=== PATIENT | female | born 1940 | race Caucasian/White ===

== ENCOUNTER 2019-09-14 08:58 | Outpatient (CLI) | payer MEDICARE, BC ==
[2019-09-14] MEDS ORDERED: METH2.5T PO (09:35)
[2019-09-14] MEDS ORDERED: MULT-658 PO (09:35)
[2019-09-14] MEDS ORDERED: ADAL40KI INJ (09:35)
[2019-09-14] MEDS ORDERED: DENO60DI INJ (09:35)
[2019-09-14] MEDS ORDERED: CALC-126 PO (09:35)
[2019-09-14] MEDS ORDERED: hydroeye PO (09:35)
[2019-09-14] MEDS ORDERED: NAPR220C2 PO (09:35)
[2019-09-14] MEDS ORDERED: FOLI-17 PO (09:35)
[2019-09-14] MEDS ORDERED: LEVO100T PO (09:35)
[2019-09-14] MEDS ORDERED: melatonin PO (09:35)
[2019-09-14 10:19] LABS: MICROSCOPIC NOT IND
[2019-09-14 10:22] LABS: BASOPHILS # (AUTO) 0.02 x10^3/uL (0-0.1); BASOPHILS % (AUTO) 0 % (0-1); EOSINOPHILS # (AUTO) 0.06 x10^3/uL (0-0.4); EOSINOPHILS % (AUTO) 1 % (1-7); LYMPHOCYTES # (AUTO) 1.22 x10^3/uL (1-3.4); LYMPHOCYTES % (AUTO) 18 % (22-44); MD NO; MEAN CORPUSCULAR HGB CONC 34.3 g/dL (32.4-35.8); MEAN CORPUSCULAR VOLUME 102.2 fL (80-100); MEAN PLATELET VOLUME 7.1 fL (7.4-10.4); MONOCYTES # (AUTO) 0.52 x10^3/uL (0.2-0.8); MONOCYTES % (AUTO) 8 % (2-9); NEUTROPHILS # (AUTO) 4.94 x10^3/uL (1.8-6.8); NEUTROPHILS % (AUTO) 73 % (42-75); PLATELET COUNT 308 x10^3/uL (130-400); RED BLOOD COUNT 4.56 x10^6/uL (3.82-5.3); RED CELL DISTRIBUTION WIDTH 14.3 % (9.6-15.2)
[2019-09-14 10:36] LABS: ANION GAP 2 mmol/L (5-15); CALCIUM 9.2 mg/dL (8.5-10.1); CHLORIDE 105 mmol/L (98-107); CREATININE 0.65 mg/dL (0.55-1.02)
[2019-09-14 10:38] LABS: INTERNATIONAL NORMALIZED RATIO 1.01 (0.93-1.1); PROTHROMBIN TIME 10.7 Seconds (9.6-11.5)
== END 2019-09-14 23:59 | disposition home or self-care (01) ==
LOC: STAR 08:58
PROVIDERS: ATTEND Neurological Surgery
DX: Z01.818 Encounter for other preprocedural examination (principal); M47.22 Other spondylosis with radiculopathy, cervical region; M41.84 Other forms of scoliosis, thoracic region; M50.30 Other cervical disc degeneration, unspecified cervical region; M25.78 Osteophyte, vertebrae
CPT/HCPCS: 36415; 71046; 72050; 80048; 81003; 85025; 85610; 85730; 93005; U0001-CS

== ENCOUNTER 2019-09-23 05:33 | Observation (INO) | payer MEDICARE, BC ==
[~2019-09-23] VITALS: Ht 172.7 cm; Wt 60.0 kg
[~2019-09-23 05:33] MED LIST: ADAL40KI INJ; CALC-126 PO; DENO60DI INJ; FOLI-17 PO; LEVO100T PO; METH2.5T PO; MULT-658 PO; NAPR220C2 PO; hydroeye PO; melatonin PO
[2019-09-23] MEDS ORDERED: LACTATED RINGERS 1,000 ML IV SCH (06:06)
[2019-09-23] MEDS ORDERED: BACITRACIN 50,000 UNIT ONE (06:13)
[2019-09-23] MEDS ORDERED: BUPIVACAINE/PF-EPI 0.5% 1:200K ONE (06:13)
[2019-09-23] MEDS ORDERED: VANCOMYCIN 1,000 MG ONE (06:13)
[2019-09-23] MEDS ORDERED: LIDOCAINE-MPF 1%, 2ML ONE (06:17)
[2019-09-23] MEDS ORDERED: CHLORHEXIDINE 15 ML UDC MM ONE (06:30)
[2019-09-23] MEDS ORDERED: GABAPENTIN 300 MG CAPSULE ONE (06:36)
[2019-09-23] MEDS ORDERED: FAMOTIDINE 20 MG TABLET ONE (06:36)
[2019-09-23] MEDS ORDERED: ACETAMINOPHEN 500 MG TABLET ONE (06:36)
[2019-09-23] MEDS ORDERED: MIDAZOLAM 1 MG/ML, 2ML ONE (06:40)
[2019-09-23] MEDS ORDERED: PROPOFOL 100 ML ONE (06:44)
[2019-09-23] MEDS ORDERED: FENTANYL PF 250 MCG/5ML ONE (06:44)
[2019-09-23] MEDS ORDERED: FAMOTIDINE 20 MG TABLET PO ONE (07:00)
[2019-09-23] MEDS ORDERED: ACETAMINOPHEN 500 MG TABLET PO ONE (07:00)
[2019-09-23] MEDS ORDERED: GABAPENTIN 300 MG CAPSULE PO ONE (07:00)
[2019-09-23] MEDS ORDERED: CEFAZOLIN 1,000 MG ONE (07:01)
[2019-09-23] MEDS ORDERED: DEXAMETHASONE 4 MG/ML, 1ML ONE (07:19)
[2019-09-23] MEDS ORDERED: LABETALOL 5MG/ML, 20ML IV PRN (08:30)
[2019-09-23] MEDS ORDERED: morphine SULFATE 10 MG/ML, 1ML IVPush PRN (08:30)
[2019-09-23] MEDS ORDERED: DIAZEPAM 5 MG/ML, 2ML IVPush PRN (08:30)
[2019-09-23] MEDS ORDERED: FENTANYL PF 100 MCG/2ML IV PRN (08:30)
[2019-09-23] MEDS ORDERED: hydrALAzine 20 MG/ML, 1ML IV PRN (08:30)
[2019-09-23] MEDS ORDERED: HYDROmorphone 1 MG/ML, 1ML INJ IVPush PRN ×2 (08:30→09:00)
[2019-09-23] MEDS ORDERED: ONDANSETRON 2MG/ML, 2ML IVPush PRN ×2 (08:30→09:00)
[2019-09-23] MEDS ORDERED: OXYcodone 5 MG/5 ML ORAL.SOL UDC PO PRN (08:30)
[2019-09-23] MEDS ORDERED: PROMETHAZINE 25 MG/ML, 1ML IVPush PRN (08:30)
[2019-09-23] MEDS ORDERED: PROPOFOL 10 MG/ML, 20ML ONE (08:31)
[2019-09-23] MEDS ORDERED: ROCURONIUM 10MG/ML,5ML ONE (08:31)
[2019-09-23] MEDS ORDERED: ONDANSETRON 2MG/ML, 2ML ONE (08:32)
[2019-09-23] MEDS ORDERED: FENTANYL PF 100 MCG/2ML ONE (08:45)
[2019-09-23] MEDS ORDERED: MAGNESIUM HYDROXIDE 8%, 30ML UDC PO PRN (09:00)
[2019-09-23] MEDS: SODIUM CHLORIDE FLUSH 10ML SYR IVF SCH ×2 (09:00→19:42)
[2019-09-23] MEDS ORDERED: MEPERIDINE/PF 100 MG/ML IM PRN (09:00)
[2019-09-23] MEDS ORDERED: TIZANIDINE 4MG TABLET PO PRN (09:00)
[2019-09-23] MEDS ORDERED: DIPHENHYDRAMINE 50 MG/ML, 1ML IVPush PRN (09:00)
[2019-09-23] MEDS ORDERED: PROMETHAZINE 25 MG/ML, 1ML IM PRN (09:00)
[2019-09-23] MEDS ORDERED: SENNA/DOCUSATE TABLET PO PRN (09:00)
[2019-09-23] MEDS ORDERED: PHARMACY MAY ADJ FOR RENAL FX MC PRN (09:00)
[2019-09-23] MEDS ORDERED: BISACODYL 10 MG SUPP PR PRN (09:00)
[2019-09-23] MEDS ORDERED: DIAZEPAM 5 MG TABLET PO PRN (09:00)
[2019-09-23] MEDS ORDERED: OXYcodone 5 MG/5 ML ORAL.SOL UDC ONE (09:10)
[2019-09-23] MEDS ORDERED: LABETALOL 5MG/ML, 20ML ONE (09:23)
[2019-09-23] MEDS ORDERED: METHOCARBAMOL 1,000 MG in DEXTROSE 5% 100 ML IV ONE (09:45)
[2019-09-23 10:30] VITALS: BP 133/76
[2019-09-23 13:12] VITALS: BP 152/78
[2019-09-23] MEDS: NS + 20MEQ KCL 1,000 ML IV SCH ×2 (14:43→22:20)
[2019-09-23] MEDS: CEFAZOLIN PMX 1GM/50ML 50 ML IVPB SCH ×2 (15:00→23:00)
[2019-09-23] MEDS ORDERED: TIZA2TAB4 PO (17:52)
[2019-09-23 18:39] VITALS: BP 109/53
[2019-09-23] MEDS: OXYcodone/APAP 5/325MG TABLET PO PRN (20:40)
[2019-09-24 00:24] VITALS: BP 94/55
[2019-09-24] MEDS: OXYcodone/APAP 5/325MG TABLET PO PRN ×2 (02:10→10:46)
[2019-09-24 03:58] VITALS: BP 103/64
[2019-09-24 07:00] VITALS: BP 161/83
[2019-09-24] MEDS: SODIUM CHLORIDE FLUSH 10ML SYR IVF SCH (09:00)
== END 2019-09-24 11:20 | disposition home or self-care (01) ==
LOC: OUT 05:33 → ORIP 08:48 → 4NE 10:37 → DCLOUNGE 09-24 11:08
PROVIDERS: ADMIT Neurological Surgery; ATTEND Neurological Surgery
DX: M47.22 Other spondylosis with radiculopathy, cervical region (principal); M50.30 Other cervical disc degeneration, unspecified cervical region; I10 Essential (primary) hypertension; G47.00 Insomnia, unspecified; E07.9 Disorder of thyroid, unspecified; M06.9 Rheumatoid arthritis, unspecified; M81.0 Age-related osteoporosis without current pathological fracture; M19.90 Unspecified osteoarthritis, unspecified site; G90.09 Other idiopathic peripheral autonomic neuropathy; Z87.891 Personal history of nicotine dependence; Z79.899 Other long term (current) drug therapy
CPT/HCPCS: 63045; 63046; 63048; 72040; 96365; 96366; 97161; C1713; G0378; J0690; J1100; J2250; J2405; J2704; J2800; J3010; J3490; J7120; J3370